=== PATIENT | female | born 1940 | race Caucasian/White ===

== ENCOUNTER 2018-08-29 05:05 | Inpatient (IN) | payer MEDICARE ==
[2018-08-23 16:18] LABS: BASOPHILS # (AUTO) 0.1 X10'3 (0-0.2); BASOPHILS % (AUTO) 0.8 % (0-1); EOSINOPHILS # (AUTO) 0.1 X10'3 (0-0.9); EOSINOPHILS % (AUTO) 1.8 % (0-6); LYMPHOCYTES # (AUTO) 2.6 X10'3 (1.1-4.8); LYMPHOCYTES % (AUTO) 32.6 % (21-51); MEAN CORPUSCULAR HEMOGLOBIN 27.9 PG (27.0-31.0); MEAN CORPUSCULAR HGB CONC 33.2 % (33.0-36.5); MEAN CORPUSCULAR VOLUME 84.2 FL (78-98); MEAN PLATELET VOLUME 8.3 FL (7.4-10.4); MONOCYTES # (AUTO) 0.6 X10'3 (0-0.9); MONOCYTES % (AUTO) 7.1 % (2-12); NEUTROPHILS # (AUTO) 4.6 X10'3 (1.8-7.7); NEUTROPHILS % (AUTO) 57.7 % (42-75); PRE OP HEMATOCRIT 40.1 % (35.0-45.0); PRE OP HEMOGLOBIN 13.3 g/dL (12.0-16.0); PRE OP PLATELET COUNT 273 X10'3 (140-440); RED BLOOD COUNT 4.76 X10'6 (4.20-5.60); RED CELL DISTRIBUTION WIDTH 13.1 % (11.5-14.5)
[2018-08-23 16:27] LABS: HEMOGLOBIN A1C 6.7 % (4.5-6.2)
[2018-08-23 16:29] LABS: ALBUMIN 3.4 G/DL (3.4-5.0); ALBUMIN/GLOBULIN RATIO 0.9 (1.1-1.5); ALKALINE PHOSPHATASE 77 IU/L (46-116); BLOOD UREA NITROGEN 19 MG/DL (7-18); BUN/CREATININE RATIO 19.6 (6.6-38.0); CHLORIDE 103 MMOL/L (99-107); CREATININE 0.97 MG/DL (0.40-0.90); PRE OP ALT 20 U/L (30-65); PRE OP ANION GAP 9 (8-16); PRE OP AST 14 U/L (10-37); PRE OP BILIRUB, TOTAL 0.2 MG/DL (0.0-1.0); PRE OP GLUCOSE 109 MG/DL (70-104); PRE OP POTASSIUM 3.5 MMOL/L (3.4-5.1); PRE OP SODIUM 142 MMOL/L (135-145); TOTAL PROTEIN 7.4 G/DL (6.4-8.2); eGFR 56 ML/MIN
[2018-08-29] VITALS (18 sets, daily range): BP systolic 101–184; BP diastolic 50–80
[~2018-08-29] VITALS: Ht 177.8 cm; Wt 115.7 kg
[~2018-08-29 05:05] MED LIST: CEPH500C5 PO; CITA-278 PO; CLOP75TA33 PO; DIT5T PO; FURO-150 PO; LOSA25TA12 PO; LOVA20TA2 PO; NOR5T PO; POTA10TA19 PO; ringers solution, lacted 1,000 ML IV SCH
[2018-08-29] MEDS ORDERED: vancomycin inj 1,500 MG in normal saline 300ml IV soln IV ONE (05:30)
[2018-08-29] MEDS ORDERED: famotidine 20mg tablet PO ONE (05:30)
[2018-08-29] MEDS ORDERED: cefazolin/dext.iso 2gm/100 ML IV ONE (05:30)
[2018-08-29] MEDS ORDERED: LIDOcaine 1% (10mg/ml) 2ml vial ONE (05:53)
[2018-08-29] MEDS ORDERED: tetracaine 1% (10mg/ml) pres. free inj. ONE (07:03)
[2018-08-29] MEDS ORDERED: tranexamic acid inj. 1,150 MG in normal saline 100ml IV soln 88.5 ML IV ONE ×4 (07:35)
[2018-08-29] MEDS ORDERED: MIDAZolam 1mg/ml 10ml vial ONE (07:44)
[2018-08-29] MEDS ORDERED: fentaNYL/PF 50MCG/1 ML 2ML syringe ONE (07:45)
[2018-08-29] MEDS ORDERED: propofol inj 20 ML IV ONE (08:03)
[2018-08-29] MEDS ORDERED: ketorolac trometh. 30mg/ml inj. ONE (08:22)
[2018-08-29] MEDS ORDERED: vancomycin 1,000mg inj ONE (08:22)
[2018-08-29] MEDS ORDERED: ROPIVAcaine 0.5% (5mg/ml) 30ml vial ONE ×2 (08:22→10:19)
[2018-08-29] MEDS ORDERED: ringers solution, lacted 1,000 ML IV SCH (09:01)
[2018-08-29] MEDS ORDERED: proCHLORperazine 10 MG/2 ml inj IV PRN (09:05)
[2018-08-29] MEDS ORDERED: ondansetron/PF 4mg/2ml inj IV PRN ×2 (09:05→10:20)
[2018-08-29] MEDS ORDERED: meperidine/PF 25mg/ml syringe IV PRN ×3 (09:05)
[2018-08-29] MEDS ORDERED: morphine 4 MG/ML inj SYRINge IV PRN ×2 (09:05)
[2018-08-29] MEDS ORDERED: BUPIVAcaine/dex-water/PF 7.5 mg/ml 2ml ampul ONE (10:18)
[2018-08-29] MEDS ORDERED: acetaminophen 325mg tablet PO PRN (10:20)
[2018-08-29] MEDS ORDERED: HYDROmorphone 1 mg/ml syringe IV PRN ×2 (10:20)
[2018-08-29] MEDS ORDERED: diphenhydrAMINE 25mg capsule PO PRN ×2 (10:20)
[2018-08-29] MEDS ORDERED: magnesium hydroxide 30ml (MOM) UD suspension PO PRN (10:20)
[2018-08-29] MEDS ORDERED: bisacodyl 10mg suppository rectal RC PRN (10:20)
[2018-08-29] MEDS ORDERED: tranexamic acid inj. 1,150 MG in normal saline 100ml IV soln 100 ML IV ONE (13:30)
[2018-08-29] MEDS: acetaminophen 325mg tablet PO SCH ×2 (13:49→20:49)
[2018-08-29] MEDS: gabapentin 300mg capsule PO SCH ×2 (13:49→20:48)
[2018-08-29] MEDS: ketorolac tromethamine 15mg/ml inj. IV SCH ×2 (13:50→20:48)
[2018-08-29] MEDS ORDERED: amLODIPine 5mg tablet PO ONE (14:55)
[2018-08-29] MEDS: potassium cl 20mEq in 1/2 NS 1,000 ML IV SCH ×2 (15:04→20:48)
[2018-08-29] MEDS: cephalexin 500mg capsule PO SCH ×2 (16:06→20:48)
[2018-08-29] MEDS: ceFAZolin 1GM/D5W- ADD-VANTAGE 50 ML IV SCH (16:06)
[2018-08-29] MEDS: oxyCODONE IR 5mg (immed. release) tablet PO PRN ×2 (16:11→20:49)
[2018-08-29] MEDS ORDERED: vancomycin/NS 1 GM ADD-VANTAGE 250 ML IV SCH (20:00)
[2018-08-29] MEDS: sennosides 8.6mg tablet PO SCH (20:48)
[2018-08-30] MEDS: ceFAZolin 1GM/D5W- ADD-VANTAGE 50 ML IV SCH (00:04)
[2018-08-30] MEDS: oxyCODONE IR 5mg (immed. release) tablet PO PRN ×4 (01:53→19:20)
[2018-08-30] MEDS: ketorolac tromethamine 15mg/ml inj. IV SCH ×2 (01:54→08:12)
[2018-08-30] MEDS: acetaminophen 325mg tablet PO SCH ×4 (01:54→19:20)
[2018-08-30 05:26] LABS: BASOPHILS % (AUTO) 0 % (0-1); EOSINOPHILS # (AUTO) 0.2 X10'3 (0-0.9); EOSINOPHILS % (AUTO) 1.5 % (0-6); LYMPHOCYTES # (AUTO) 1.7 X10'3 (1.1-4.8); LYMPHOCYTES % (AUTO) 13.8 % (21-51); MEAN CORPUSCULAR HGB CONC 33.4 % (33.0-36.5); MEAN PLATELET VOLUME 8.2 FL (7.4-10.4); MONOCYTES # (AUTO) 0.6 X10'3 (0-0.9); MONOCYTES % (AUTO) 5.3 % (2-12); NEUTROPHILS # (AUTO) 9.6 X10'3 (1.8-7.7); NEUTROPHILS % (AUTO) 79.4 % (42-75); PLATELET COUNT 210 X10'3 (140-440); RED BLOOD COUNT 3.93 X10'6 (4.20-5.60); RED CELL DISTRIBUTION WIDTH 13.6 % (11.5-14.5)
[2018-08-30 05:43] LABS: ANION GAP 8 (8-16); CHLORIDE 104 MMOL/L (99-107); POTASSIUM 4.2 MMOL/L (3.5-5.1); SODIUM 138 MMOL/L (135-145); TOTAL CARBON DIOXIDE 25.7 MMOL/L (24-32)
[2018-08-30] MEDS: potassium cl 20mEq in 1/2 NS 1,000 ML IV SCH ×3 (05:53→18:18)
[2018-08-30 06:00] VITALS: BP 140/65
[2018-08-30] MEDS: furosemide 20MG tablet PO SCH (08:00)
[2018-08-30] MEDS: clopidogrel 75mg tablet PO SCH (08:00)
[2018-08-30] MEDS: citalopram 20mg tablet PO SCH (08:12)
[2018-08-30] MEDS: potassium chloride 10mEq ER tablet PO SCH (08:12)
[2018-08-30] MEDS: losartan 25mg tablet PO SCH (08:12)
[2018-08-30] MEDS: oxybutynin 5mg tablet PO SCH (08:12)
[2018-08-30] MEDS: gabapentin 300mg capsule PO SCH ×3 (08:13→19:19)
[2018-08-30] MEDS: amLODIPine 5mg tablet PO SCH (08:13)
[2018-08-30] MEDS: aspirin 325mg tablet PO SCH (08:13)
[2018-08-30] MEDS: atorvastatin 10mg tablet PO SCH (08:13)
[2018-08-30] MEDS: cephalexin 500mg capsule PO SCH ×3 (08:15→19:19)
[2018-08-30 10:00] VITALS: BP 135/53
[2018-08-30 14:00] VITALS: BP_SYST 41
[2018-08-30 18:00] VITALS: BP 131/48
[2018-08-30] MEDS: sennosides 8.6mg tablet PO SCH (19:19)
[2018-08-30] MEDS: lactobacillus rhamnosus 10,000 MMU CELLS/CAPSULE PO SCH (19:19)
[2018-08-30] MEDS: celeCOXIB 100mg capsule PO SCH (19:20)
[2018-08-30 22:00] VITALS: BP 138/51
[2018-08-31] MEDS: acetaminophen 325mg tablet PO SCH ×2 (02:00→08:52)
[2018-08-31] MEDS: potassium cl 20mEq in 1/2 NS 1,000 ML IV SCH (02:18)
[2018-08-31] MEDS: oxyCODONE IR 5mg (immed. release) tablet PO PRN ×2 (05:17→08:57)
[2018-08-31 05:49] LABS: BASOPHILS % (AUTO) 0.2 % (0-1); EOSINOPHILS # (AUTO) 0.2 X10'3 (0-0.9); HEMATOCRIT 30.1 % (35.0-45.0); LYMPHOCYTES # (AUTO) 2.2 X10'3 (1.1-4.8); LYMPHOCYTES % (AUTO) 24.7 % (21-51); MEAN CORPUSCULAR HEMOGLOBIN 28.2 PG (27.0-31.0); MEAN CORPUSCULAR HGB CONC 33.3 % (33.0-36.5); MEAN CORPUSCULAR VOLUME 84.7 FL (78-98); MEAN PLATELET VOLUME 8.1 FL (7.4-10.4); MONOCYTES # (AUTO) 0.7 X10'3 (0-0.9); MONOCYTES % (AUTO) 7.5 % (2-12); NEUTROPHILS # (AUTO) 5.9 X10'3 (1.8-7.7); NEUTROPHILS % (AUTO) 65.6 % (42-75); PLATELET COUNT 184 X10'3 (140-440); RED BLOOD COUNT 3.55 X10'6 (4.20-5.60); RED CELL DISTRIBUTION WIDTH 13.8 % (11.5-14.5)
[2018-08-31 06:00] VITALS: BP 135/57
[2018-08-31] MEDS: potassium chloride 10mEq ER tablet PO SCH (08:00)
[2018-08-31] MEDS: furosemide 20MG tablet PO SCH (08:00)
[2018-08-31] MEDS: citalopram 20mg tablet PO SCH (08:50)
[2018-08-31] MEDS: celeCOXIB 100mg capsule PO SCH ×2 (08:50→19:49)
[2018-08-31] MEDS: lactobacillus rhamnosus 10,000 MMU CELLS/CAPSULE PO SCH ×2 (08:50→19:49)
[2018-08-31] MEDS: losartan 25mg tablet PO SCH (08:50)
[2018-08-31] MEDS: cephalexin 500mg capsule PO SCH ×3 (08:50→20:39)
[2018-08-31] MEDS: oxybutynin 5mg tablet PO SCH (08:50)
[2018-08-31] MEDS: clopidogrel 75mg tablet PO SCH (08:51)
[2018-08-31] MEDS: atorvastatin 10mg tablet PO SCH (08:51)
[2018-08-31] MEDS: gabapentin 300mg capsule PO SCH ×3 (08:51→20:39)
[2018-08-31] MEDS: amLODIPine 5mg tablet PO SCH (08:51)
[2018-08-31] MEDS: aspirin 325mg tablet PO SCH (08:52)
[2018-08-31 10:00] VITALS: BP 133/44
[2018-08-31] MEDS ORDERED: acetaminophen 325mg tablet PO PRN (10:20)
[2018-08-31 17:00] VITALS: BP 122/38
[2018-08-31] MEDS: sennosides 8.6mg tablet PO SCH (20:39)
[2018-08-31 22:04] VITALS: BP 134/44
[2018-09-01 06:00] VITALS: BP 155/47
[2018-09-01 07:56] LABS: BASOPHILS % (AUTO) 0.3 % (0-1); EOSINOPHILS # (AUTO) 0.2 X10'3 (0-0.9); EOSINOPHILS % (AUTO) 2.9 % (0-6); HEMATOCRIT 31.8 % (35.0-45.0); HEMOGLOBIN 10.7 g/dl (12.0-16.0); LYMPHOCYTES # (AUTO) 1.7 X10'3 (1.1-4.8); LYMPHOCYTES % (AUTO) 20.6 % (21-51); MEAN CORPUSCULAR HEMOGLOBIN 28.4 PG (27.0-31.0); MEAN CORPUSCULAR HGB CONC 33.6 % (33.0-36.5); MEAN CORPUSCULAR VOLUME 84.5 FL (78-98); MEAN PLATELET VOLUME 8.5 FL (7.4-10.4); MONOCYTES # (AUTO) 0.6 X10'3 (0-0.9); MONOCYTES % (AUTO) 7.5 % (2-12); NEUTROPHILS # (AUTO) 5.6 X10'3 (1.8-7.7); NEUTROPHILS % (AUTO) 68.7 % (42-75); PLATELET COUNT 178 X10'3 (140-440); RED BLOOD COUNT 3.76 X10'6 (4.20-5.60); RED CELL DISTRIBUTION WIDTH 14.1 % (11.5-14.5); WHITE BLOOD COUNT 8.2 X10'3 (4.5-11.0)
[2018-09-01] MEDS: furosemide 20MG tablet PO SCH (08:00)
[2018-09-01] MEDS: potassium chloride 10mEq ER tablet PO SCH (08:00)
[2018-09-01] MEDS: celeCOXIB 100mg capsule PO SCH (08:41)
[2018-09-01] MEDS: citalopram 20mg tablet PO SCH (08:41)
[2018-09-01] MEDS: losartan 25mg tablet PO SCH (08:41)
[2018-09-01] MEDS: atorvastatin 10mg tablet PO SCH (08:42)
[2018-09-01] MEDS: aspirin 325mg tablet PO SCH (08:42)
[2018-09-01] MEDS: lactobacillus rhamnosus 10,000 MMU CELLS/CAPSULE PO SCH (08:42)
[2018-09-01] MEDS: cephalexin 500mg capsule PO SCH (08:42)
[2018-09-01] MEDS: clopidogrel 75mg tablet PO SCH (08:42)
[2018-09-01] MEDS: gabapentin 300mg capsule PO SCH (08:42)
[2018-09-01] MEDS: amLODIPine 5mg tablet PO SCH (08:42)
[2018-09-01] MEDS: oxybutynin 5mg tablet PO SCH (08:42)
[2018-09-01] MEDS: oxyCODONE IR 5mg (immed. release) tablet PO PRN (08:42)
[2018-09-01 10:00] VITALS: BP 149/58
== END 2018-09-01 12:00 | DRG 470 ==
LOC: PAS IN 05:05 → ORTHO 4S 11:45 → EDSTATUS 14:15 → UNDODISIN 09-01 12:00
PROVIDERS: ADMIT Orthopaedic Surgery; ATTEND Orthopaedic Surgery
PROC: 8E0YXBZ Computer Assisted Procedure of Lower Extremity (ICD-10-PCS; 2018-08-29)
PROC: 8E0YXCZ Robotic Assisted Procedure of Lower Extremity (ICD-10-PCS; 2018-08-29)
PROC: 3E0T3BZ Introduction of Anesthetic Agent into Peripheral Nerves and Plexi, Percutaneous Approach (ICD-10-PCS; 2018-08-29)
PROC: 0SRD0J9 Replacement of Left Knee Joint with Synthetic Substitute, Cemented, Open Approach (ICD-10-PCS; principal; 2018-08-29 07:23)
DX: M17.12 Unilateral primary osteoarthritis, left knee (principal); D62 Acute posthemorrhagic anemia; E78.5 Hyperlipidemia, unspecified; E11.9 Type 2 diabetes mellitus without complications; I10 Essential (primary) hypertension; F41.8 Other specified anxiety disorders; N32.89 Other specified disorders of bladder; I25.10 Atherosclerotic heart disease of native coronary artery without angina pectoris; M51.16 Intervertebral disc disorders with radiculopathy, lumbar region; K21.9 Gastro-esophageal reflux disease without esophagitis; Z95.5 Presence of coronary angioplasty implant and graft; Z90.710 Acquired absence of both cervix and uterus; Z87.891 Personal history of nicotine dependence
CPT/HCPCS: 36415; 71046; 80051; 80053; 82948; 83036; 85025; 87070; 97110; 97116; 97162; 97530; A6455; A7000; C1713; C1758; C1776; G0378; J0690; J1170; J1885; J2250; J2704; J2795; J3010; J3370; J3490; J7030; J7120

== ENCOUNTER 2019-06-27 14:51 | Observation (INO) | payer MEDICARE ==
[~2019-06-27] VITALS: Ht 177.8 cm; Wt 101.0 kg
[~2019-06-27 14:51] MED LIST changes: -CITA-278 PO; +CITA20TA28 PO; -LOSA25TA12 PO; +LOSA25TA41 PO; -ringers solution, lacted 1,000 ML IV SCH
[2019-06-27 15:26] LABS: BASOPHILS # (AUTO) 0.1 X10'3 (0-0.2); BASOPHILS % (AUTO) 1.2 % (0-1); EOSINOPHILS # (AUTO) 0.2 X10'3 (0-0.9); EOSINOPHILS % (AUTO) 2.9 % (0-6); HEMATOCRIT 40.2 % (35.0-45.0); HEMOGLOBIN 13.4 g/dl (12.0-16.0); LYMPHOCYTES # (AUTO) 3.2 X10'3 (1.1-4.8); LYMPHOCYTES % (AUTO) 44.9 % (21-51); MEAN CORPUSCULAR HEMOGLOBIN 28.5 PG (27.0-31.0); MEAN CORPUSCULAR HGB CONC 33.2 g/dL (33.0-36.5); MEAN CORPUSCULAR VOLUME 85.9 FL (78-98); MEAN PLATELET VOLUME 8.2 FL (7.4-10.4); MONOCYTES # (AUTO) 0.5 X10'3 (0-0.9); NEUTROPHILS # (AUTO) 3.1 X10'3 (1.8-7.7); PLATELET COUNT 206 X10'3 (140-440); RED BLOOD COUNT 4.69 X10'6 (4.20-5.60); RED CELL DISTRIBUTION WIDTH 14.4 % (11.5-14.5)
[2019-06-27 15:37] LABS: PARTIAL THROMBOPLASTIN TIME 27 SECONDS (22-32)
[2019-06-27 15:38] LABS: ALANINE AMINOTRANSFERASE 17 U/L (12-78); ALBUMIN 3.6 G/DL (3.4-5.0); ALKALINE PHOSPHATASE 72 IU/L (46-116); ANION GAP 8 (8-16); ASPARTATE AMINO TRANSFERASE 10 U/L (10-37); BILIRUBIN,TOTAL 0.3 MG/DL (0.1-1.0); BLOOD UREA NITROGEN 18 MG/DL (7-18); BUN/CREATININE RATIO 19.8 (6.6-38.0); CHLORIDE 106 MMOL/L (99-107); CREATININE 0.91 MG/DL (0.40-0.90); GLUCOSE 95 MG/DL (70-104); POTASSIUM 3.9 MMOL/L (3.5-5.1); SODIUM 144 MMOL/L (135-145); TOTAL CARBON DIOXIDE 30.1 MMOL/L (24-32); TOTAL PROTEIN 7.1 G/DL (6.4-8.2); eGFR 60 ML/MIN
[2019-06-27] MEDS ORDERED: aspirin 81mg tab.chew PO ONE (16:15)
[2019-06-27] MEDS ORDERED: nitroGLYCERIN 0.4mg SUBLingual tab SL PRN ×3 (16:15→17:10)
[2019-06-27 16:30] LABS: D-DIMER 1.43 MG/L FEU (0-0.50)
[2019-06-27] MEDS ORDERED: magnesium hydroxide 30ml (MOM) UD suspension PO PRN (17:10)
[2019-06-27] MEDS ORDERED: HYDROcodone/acetaminophen 10/325mg tab PO PRN (17:10)
[2019-06-27] MEDS ORDERED: mag hydrox/Alum hydrox/simeth 30ml oral suspension PO PRN (17:10)
[2019-06-27] MEDS ORDERED: morphine 2 MG/ML inj. syringe IV PRN ×2 (17:10)
[2019-06-27] MEDS ORDERED: magnesium 4gm in 100ml NS 100 ML IV PRN (17:10)
[2019-06-27] MEDS ORDERED: aminophylline 250mg/10ml inj. IV PRN (17:10)
[2019-06-27] MEDS ORDERED: regadenoson 0.4mg/5ml syringe IV PRN (17:10)
[2019-06-27] MEDS ORDERED: acetaminophen 325mg tablet PO PRN ×2 (17:10)
[2019-06-27] MEDS ORDERED: magnesium Cl slow-release 64mg tablet PO PRN (17:10)
[2019-06-27] MEDS ORDERED: potassium CL 10mEq/100ml bag 100 ML IV PRN ×2 (17:10)
[2019-06-27] MEDS ORDERED: HYDROcodone/acetaminophen 5mg/325mg tablet PO PRN (17:10)
[2019-06-27] MEDS ORDERED: ondansetron/PF 4mg/2ml inj IV PRN (17:10)
[2019-06-27] MEDS ORDERED: potassium Cl 20 mEq SR tablet PO PRN ×2 (17:10)
[2019-06-27] MEDS ORDERED: metoprolol tartrate 1mg/ml inj IV PRN (17:10)
[2019-06-27] MEDS ORDERED: magnesium 2GM in 50ml NS 50 ML IV PRN (17:10)
[2019-06-27] MEDS ORDERED: iohexol 350MG/ML 100ml bottle IV ONE (17:16)
[2019-06-27] MEDS ORDERED: NITR50CA PO (17:20)
[2019-06-27] MEDS: normal saline 1000ml 1,000 ML IV SCH ×2 (18:04→20:46)
[2019-06-27] MEDS: oxybutynin 5mg tablet PO SCH (20:46)
[2019-06-27] MEDS ORDERED: temazepam 15mg capsule PO PRN (21:00)
[2019-06-27 21:59] LABS: HEMOGLOBIN A1C 5.9 % (4.5-6.2)
[2019-06-27 22:00] VITALS: BP 140/58
[2019-06-28] VITALS (10 sets, daily range): BP systolic 144–177; BP diastolic 56–87
[2019-06-28 04:20] LABS: HEMATOCRIT 40.7 % (35.0-45.0); HEMOGLOBIN 13.7 g/dl (12.0-16.0); MEAN CORPUSCULAR HEMOGLOBIN 28.7 PG (27.0-31.0); MEAN CORPUSCULAR HGB CONC 33.5 g/dL (33.0-36.5); MEAN CORPUSCULAR VOLUME 85.5 FL (78-98); MEAN PLATELET VOLUME 8.2 FL (7.4-10.4); PLATELET COUNT 178 X10'3 (140-440); RED BLOOD COUNT 4.77 X10'6 (4.20-5.60); RED CELL DISTRIBUTION WIDTH 14.1 % (11.5-14.5); WHITE BLOOD COUNT 6.2 X10'3 (4.5-11.0)
[2019-06-28 04:25] LABS: ALBUMIN 3.4 G/DL (3.4-5.0); ANION GAP 7 (8-16); CALCIUM 8.6 MG/DL (8.5-10.1); CHLORIDE 109 MMOL/L (99-107); CHOL/HDL RATIO 2.8 (0.00-4.99); CHOLESTEROL 135 MG/DL (0-200); CREATININE 0.97 MG/DL (0.40-0.90); GLUCOSE 96 MG/DL (70-104); HDL CHOLESTEROL 48 MG/DL (35-60); LDL CHOLESTEROL 68 MG/DL (50-100); MAGNESIUM 1.9 MG/DL (1.5-2.4); PHOSPHORUS 4.8 MG/DL (2.3-4.5); POTASSIUM 3.8 MMOL/L (3.5-5.1); SODIUM 144 MMOL/L (135-145); TOTAL CARBON DIOXIDE 28.4 MMOL/L (24-32); TRIGLYCERIDES 122 MG/DL (20-135); eGFR 55 ML/MIN
[2019-06-28 04:27] LABS: BLOOD UREA NITROGEN 19 MG/DL (7-18); BUN/CREATININE RATIO 19.6 (6.6-38.0)
[2019-06-28] MEDS: normal saline 1000ml 1,000 ML IV SCH (05:07)
--- NOTE | 2019-06-28 06:28 | NUR ---
Patient in room PCU 3012. I have received report from Jie RAMOS and had the opportunity to ask questions and assume patient care. Pt is in bed resting, all needs met at this time. will continue to monitor.
[2019-06-28] MEDS: oxybutynin 5mg tablet PO SCH (07:21)
[2019-06-28] MEDS ORDERED: clopidogrel 75mg tablet PO SCH (08:00)
[2019-06-28] MEDS ORDERED: citalopram 20mg tablet PO SCH (08:00)
[2019-06-28] MEDS ORDERED: atorvastatin 10mg tablet PO SCH (08:00)
[2019-06-28] MEDS ORDERED: K and/or MAG REPLACEMENT MC SCH (08:00)
[2019-06-28] MEDS ORDERED: enoxaparin 40mg/0.4ml syringe SUBCUT SCH (08:00)
[2019-06-28] MEDS ORDERED: losartan 25mg tablet PO SCH (08:00)
[2019-06-28] MEDS ORDERED: aspirin 325mg tablet PO SCH (08:30)
--- NOTE | 2019-06-28 09:18 | NUR ---
PAGER ID: [phone] MESSAGE: [id number] Elvia Davis: FYI Morning BP was 162/56 (122), received AM scheduled cozaar 25mg, Rechecked BP is now 147/57 (102). Thanks Yaneth [phone]
--- NOTE | 2019-06-28 09:22 | NUR ---
PAGER ID: [phone] MESSAGE: [id number] Elvia Davis: FYI Morning BP was 162/56 (122), received AM scheduled cozaar 25mg, Rechecked BP is now 147/57 (102). Thanks Yaneth [phone]
[2019-06-28] MEDS ORDERED: ASPI-1071 PO (14:10)
[2019-06-28] MEDS ORDERED: LOSA50TA64 PO (14:10)
--- NOTE | 2019-06-28 16:34 | NUR ---
pt is stable for discharge per md orders, discharge instructions reviewed w/ patient, all questions answered, new medication prescription called into [facility] @ [place] per pt request, tele monitor 52 removed and returned, PIV dc'ed and clean dry dressing in place, pt discharged @1630 to home via private vehicle w/ , wheeled down to lobby with hospital staff, all belongings w/ pt at time of discharge.
== END 2019-06-28 16:33 | disposition home or self-care (01) ==
LOC: ER 14:53 → PCU 3S 19:06 → CMPBEDREQ 19:09
PROVIDERS: ADMIT Family Medicine; ATTEND Family Medicine
DX: I25.119 Atherosclerotic heart disease of native coronary artery with unspecified angina pectoris (principal); E78.5 Hyperlipidemia, unspecified; N39.0 Urinary tract infection, site not specified; I16.0 Hypertensive urgency; F31.9 Bipolar disorder, unspecified; I12.9 Hypertensive chronic kidney disease with stage 1 through stage 4 chronic kidney disease, or unspecified chronic kidney disease; E11.22 Type 2 diabetes mellitus with diabetic chronic kidney disease; N18.9 Chronic kidney disease, unspecified; I51.7 Cardiomegaly; F32.9 Major depressive disorder, single episode, unspecified; I13.10 Hypertensive heart and chronic kidney disease without heart failure, with stage 1 through stage 4 chronic kidney disease, or unspecified chronic kidney disease; Z79.899 Other long term (current) drug therapy; Z87.440 Personal history of urinary (tract) infections; Z87.891 Personal history of nicotine dependence; Z90.710 Acquired absence of both cervix and uterus; Z95.5 Presence of coronary angioplasty implant and graft; Z96.652 Presence of left artificial knee joint; R00.1 Bradycardia, unspecified
CPT/HCPCS: 36415; 71045; 71275; 78452; 80048; 80053; 80061; 83036; 83735; 83880; 84100; 84443; 84484; 85025; 85027; 85379; 85610; 85730; 87081; 93005; 93017; 93306; 96372; 99284; A9500; G0378; J0280; J2785; J7030; Q9967; J1650

== ENCOUNTER 2019-11-08 05:53 | Day surgery (SDC) | payer MEDICARE ==
[2019-11-07 12:52] LABS: BASOPHILS % (AUTO) 0.5 % (0-1); EOSINOPHILS # (AUTO) 0.1 X10'3 (0-0.9); EOSINOPHILS % (AUTO) 2.2 % (0-6); HEMATOCRIT 38.9 % (35.0-45.0); HEMOGLOBIN 13.2 g/dl (12.0-16.0); LYMPHOCYTES # (AUTO) 2.5 X10'3 (1.1-4.8); LYMPHOCYTES % (AUTO) 37.6 % (21-51); MEAN CORPUSCULAR HEMOGLOBIN 28.9 PG (27.0-31.0); MEAN CORPUSCULAR HGB CONC 34.1 g/dL (33.0-36.5); MEAN CORPUSCULAR VOLUME 84.9 FL (78-98); MEAN PLATELET VOLUME 8.1 FL (7.4-10.4); MONOCYTES # (AUTO) 0.4 X10'3 (0-0.9); MONOCYTES % (AUTO) 5.7 % (2-12); NEUTROPHILS # (AUTO) 3.5 X10'3 (1.8-7.7); PLATELET COUNT 222 X10'3 (140-440); RED BLOOD COUNT 4.58 X10'6 (4.20-5.60); RED CELL DISTRIBUTION WIDTH 13.8 % (11.5-14.5); WHITE BLOOD COUNT 6.6 X10'3 (4.5-11.0)
[2019-11-07 12:55] LABS: ALBUMIN 3.4 G/DL (3.4-5.0); ANION GAP 6 (8-16); BLOOD UREA NITROGEN 13 MG/DL (7-18); BUN/CREATININE RATIO 14.1 (6.6-38.0); CALCIUM 8.6 MG/DL (8.5-10.1); CHLORIDE 107 MMOL/L (99-107); CREATININE 0.92 MG/DL (0.40-0.90); GLUCOSE 143 MG/DL (70-104); POTASSIUM 3.8 MMOL/L (3.5-5.1); SODIUM 145 MMOL/L (135-145); TOTAL CARBON DIOXIDE 32.2 MMOL/L (24-32); eGFR 59 ML/MIN
[2019-11-07 12:58] LABS: PARTIAL THROMBOPLASTIN TIME 26 SECONDS (22-32)
[~2019-11-08] VITALS: Ht 177.8 cm; Wt 102.7 kg
[2019-11-08] VITALS (10 sets, daily range): BP systolic 155–177; BP diastolic 58–70
[~2019-11-08 05:53] MED LIST changes: -CEPH500C5 PO; -FURO-150 PO; -LOSA25TA41 PO; +LOSA50TA64 PO; +NITR50CA PO; -NOR5T PO; -POTA10TA19 PO
[2019-11-08] MEDS ORDERED: normal saline 1000ml 1,000 ML IV SCH (06:15)
[2019-11-08] MEDS ORDERED: cefazolin/dext.iso 2gm/100ml 100 ML IV ONE (06:15)
[2019-11-08] MEDS ORDERED: LOSA50TA3 PO (06:58)
[2019-11-08] MEDS ORDERED: ASPI81TA52 PO (07:01)
[2019-11-08] MEDS ORDERED: NITR0.4T51 SL (07:01)
[2019-11-08] MEDS ORDERED: LIDOcaine 1% W/epiNEPHrine 1:100,000 20ml vial ONE (08:10)
[2019-11-08] MEDS ORDERED: midazolam 2 mg/2 ml injection ONE (08:10)
[2019-11-08] MEDS ORDERED: ceFAZolin 1000mg inj ONE (08:10)
[2019-11-08] MEDS ORDERED: fentaNYL/PF 50MCG/1 ML 2ML syringe ONE (08:10)
[2019-11-08] MEDS ORDERED: vancomycin/NS 1 GM ADD-VANTAGE 250 ML X 1 DOSE IV ONE (11:00)
== END 2019-11-08 14:00 | disposition home or self-care (01) ==
LOC: SSTAY O 05:53
PROVIDERS: ATTEND Internal Medicine Cardiovascular Disease
DX: I49.5 Sick sinus syndrome (principal); E11.9 Type 2 diabetes mellitus without complications; I10 Essential (primary) hypertension; E78.5 Hyperlipidemia, unspecified; I25.10 Atherosclerotic heart disease of native coronary artery without angina pectoris; Z87.891 Personal history of nicotine dependence; Z79.899 Other long term (current) drug therapy; Z79.01 Long term (current) use of anticoagulants
CPT/HCPCS: 33208; 36415; 71046; 80048; 85025; 85610; 85730; 93005; 99152; 99153; C1785; C1894; C1898; J0690; J2250; J3010; J3370; J7030; A4565; A4620; A6449

== ENCOUNTER 2021-08-20 14:13 | Emergency (ER) | payer MEDICARE ==
[~2021-08-20] VITALS: Ht 177.8 cm; Wt 110.7 kg
[~2021-08-20 14:13] MED LIST changes: +ASPI81TA52 PO; +LOSA50TA3 PO; -LOSA50TA64 PO; +NITR0.4T51 SL
--- NOTE | 2021-08-20 16:38 | NUR ---
informed the provider that pt had a fall on thinner and waiting for md ,if we can get the order for ct scan ,okay to order ct head and neck as per dr padilla.
--- NOTE | 2021-08-20 16:49 | NUR ---
to ct scan.
[2021-08-20 17:10] VITALS: BP 178/86
== END 2021-08-20 19:31 | disposition home or self-care (01) ==
LOC: ER 14:14
DX: S09.90XA Unspecified injury of head, initial encounter (principal); M54.2 Cervicalgia; S16.1XXA Strain of muscle, fascia and tendon at neck level, initial encounter; S80.02XA Contusion of left knee, initial encounter; M79.605 Pain in left leg; F17.200 Nicotine dependence, unspecified, uncomplicated; I25.10 Atherosclerotic heart disease of native coronary artery without angina pectoris; Z88.8 Allergy status to other drugs, medicaments and biological substances; Z79.82 Long term (current) use of aspirin; Z79.899 Other long term (current) drug therapy; W01.0XXA Fall on same level from slipping, tripping and stumbling without subsequent striking against object, initial encounter; Y93.89 Activity, other specified; Y92.89 Other specified places as the place of occurrence of the external cause; Y99.8 Other external cause status
CPT/HCPCS: 70450; 72125; 93005; 99285

== ENCOUNTER 2022-01-02 09:36 | Emergency (ER) | payer MEDICARE ==
[~2022-01-02] VITALS: Ht 177.8 cm; Wt 103.0 kg
[2022-01-02 09:39] VITALS: BP 167/73
[2022-01-02] MEDS ORDERED: acetaminophen 325mg tablet PO ONE (09:55)
[2022-01-02 10:20] LABS: BASOPHILS % (AUTO) 0.5 % (0-1); EOSINOPHILS # (AUTO) 0.2 X10'3 (0-0.9); EOSINOPHILS % (AUTO) 3.3 % (0-6); HEMATOCRIT 39.5 % (35.0-45.0); LYMPHOCYTES # (AUTO) 2.1 X10'3 (1.1-4.8); LYMPHOCYTES % (AUTO) 42.2 % (21-51); MEAN CORPUSCULAR HEMOGLOBIN 27.5 PG (27.0-31.0); MEAN CORPUSCULAR HGB CONC 32.9 g/dL (33.0-36.5); MEAN CORPUSCULAR VOLUME 83.5 FL (78-98); MEAN PLATELET VOLUME 7.6 FL (7.4-10.4); MONOCYTES # (AUTO) 0.4 X10'3 (0-0.9); MONOCYTES % (AUTO) 7.7 % (2-12); NEUTROPHILS # (AUTO) 2.3 X10'3 (1.8-7.7); NEUTROPHILS % (AUTO) 46.3 % (42-75); PLATELET COUNT 203 X10'3 (140-440); RED BLOOD COUNT 4.73 X10'6 (4.20-5.60); RED CELL DISTRIBUTION WIDTH 13.9 % (11.5-14.5)
[2022-01-02 10:26] LABS: CLARITY,URINE SLIGHTLY CLOUDY (Clear); COLOR,URINE YELLOW (Yellow); GLUCOSE, URINE NEGATIVE (Neg); KETONES,URINE NEGATIVE (Neg); LEUKOCYTE ESTERASE ,URINE NEGATIVE (Neg); NITRITES, URINE NEGATIVE (Neg); OCCULT BLOOD,URINE SMALL (Neg); PROTEIN,URINE NEGATIVE (Neg); UROBILINOGEN,URINE 0.2 E.U/dL (0.2-1.0)
[2022-01-02 10:28] LABS: ALANINE AMINOTRANSFERASE 18 U/L (12-78); ALBUMIN 3.4 G/DL (3.4-5.0); ALKALINE PHOSPHATASE 72 IU/L (46-116); ANION GAP 10 (8-16); ASPARTATE AMINO TRANSFERASE 12 U/L (10-37); BILIRUBIN,TOTAL 0.4 MG/DL (0.1-1.0); BLOOD UREA NITROGEN 21 MG/DL (7-18); BUN/CREATININE RATIO 23.6 (6.6-38.0); CALCIUM 8.9 MG/DL (8.5-10.1); CHLORIDE 105 MMOL/L (99-107); CREATININE 0.89 MG/DL (0.40-0.90); GLUCOSE 136 MG/DL (70-104); POTASSIUM 4.3 MMOL/L (3.5-5.1); SODIUM 142 MMOL/L (135-145); TOTAL CARBON DIOXIDE 26.6 MMOL/L (24-32); TOTAL PROTEIN 6.9 G/DL (6.4-8.2); eGFR 61 ML/MIN
[2022-01-02 10:29] LABS: UA COLLECTION TYPE NON-SPECIFIED
[2022-01-02] MEDS ORDERED: iohexol 350MG/ML 100ml bottle IV ONE (10:29)
--- NOTE | 2022-01-02 10:35 | NUR ---
Pt taken to CT
[2022-01-02 10:38] LABS: MUCUS STRANDS FEW /LPF (Neg); SQUAMOUS EPITHELIAL CELL,UR MANY /LPF (FEW)
[2022-01-02 10:39] LABS: BACTERIA,URINE FEW /HPF (Neg); WBC,URINE 0-4 /HPF (0-4)
== END 2022-01-02 12:41 | disposition home or self-care (01) ==
LOC: ER 09:36
DX: G89.29 Other chronic pain (principal); M54.6 Pain in thoracic spine; E04.1 Nontoxic single thyroid nodule; R53.1 Weakness; R26.2 Difficulty in walking, not elsewhere classified; R31.9 Hematuria, unspecified; I25.10 Atherosclerotic heart disease of native coronary artery without angina pectoris; I25.2 Old myocardial infarction; Z87.440 Personal history of urinary (tract) infections; Z87.442 Personal history of urinary calculi; Z95.5 Presence of coronary angioplasty implant and graft; Z95.0 Presence of cardiac pacemaker; Z88.8 Allergy status to other drugs, medicaments and biological substances; Z88.1 Allergy status to other antibiotic agents; Z79.82 Long term (current) use of aspirin; Z79.899 Other long term (current) drug therapy
CPT/HCPCS: 36415; 71275; 74175; 80053; 81001; 83605; 84145; 84484; 85025; 85610; 99285; Q9967

== ENCOUNTER 2024-01-03 18:54 | Emergency (ER) | payer MEDICARE ==
[~2024-01-03] VITALS: Ht 167.6 cm; Wt 102.7 kg
[~2024-01-03 18:54] MED LIST changes: +APIX5TAB3 PO; +ATOR-2 PO; +CARV3.1244 PO; -DIT5T PO; +LOSA-416 PO; -LOSA50TA3 PO; -LOVA20TA2 PO; +OXYB15TA19 PO; +PANT40TA54 PO
[2024-01-03 19:12] VITALS: TEMP 98
[2024-01-03 20:23] LABS: BASOPHILS % (AUTO) 0.7 % (0-1); EOSINOPHILS # (AUTO) 0.2 X10'3 (0-0.9); EOSINOPHILS % (AUTO) 2.1 % (0-6); LYMPHOCYTES # (AUTO) 2.2 X10'3 (1.1-4.8); LYMPHOCYTES % (AUTO) 29.8 % (21-51); MEAN CORPUSCULAR HEMOGLOBIN 28.6 PG (27.0-31.0); MEAN CORPUSCULAR HGB CONC 33.3 g/dL (33.0-36.5); MONOCYTES # (AUTO) 0.6 X10'3 (0-0.9); MONOCYTES % (AUTO) 8.2 % (2-12); NEUTROPHILS # (AUTO) 4.4 X10'3 (1.8-7.7); NEUTROPHILS % (AUTO) 59.2 % (42-75); PLATELET COUNT 229 X10'3 (140-440); RED BLOOD COUNT 4.54 X10'6 (4.20-5.60); RED CELL DISTRIBUTION WIDTH 13.5 % (11.5-14.5); WHITE BLOOD COUNT 7.5 X10'3 (4.5-11.0)
[2024-01-03 20:28] LABS: INR 1.1 INR; PROTHROMBIN TIME 11.3 SECONDS (9.0-12.0)
[2024-01-03 20:31] LABS: ALANINE AMINOTRANSFERASE 25 U/L (12-78); ALBUMIN 3.5 G/DL (3.4-5.0); ALBUMIN/GLOBULIN RATIO 0.9 (1.1-1.5); ALKALINE PHOSPHATASE 88 IU/L (46-116); ANION GAP 10 (8-16); ASPARTATE AMINO TRANSFERASE 16 U/L (10-37); BILIRUBIN,TOTAL 0.5 MG/DL (0.1-1.0); BLOOD UREA NITROGEN 15 MG/DL (7-18); BUN/CREATININE RATIO 14.6 (10.0-20.0); CHLORIDE 105 MMOL/L (99-107); CREATININE 1.03 MG/DL (0.40-0.90); GLUCOSE 144 MG/DL (70-104); POTASSIUM 3.8 MMOL/L (3.5-5.1); SODIUM 144 MMOL/L (135-145); TOTAL CARBON DIOXIDE 28.7 MMOL/L (24-32); TOTAL PROTEIN 7.3 G/DL (6.4-8.2); eCRCL 39 ML/MIN; eGFR 51 ML/MIN
[2024-01-03 20:39] LABS: PRO BRAIN NATRIURETIC PEPTIDE 509 PG/ML (0-450)
[2024-01-03 21:09] VITALS: BP 167/72; PULSE 60; RESP 13; O2SAT 99
== END 2024-01-03 20:50 | disposition home or self-care (01) ==
LOC: ER 18:54
DX: S00.83XA Contusion of other part of head, initial encounter (principal); E11.9 Type 2 diabetes mellitus without complications; Z88.8 Allergy status to other drugs, medicaments and biological substances; Z88.5 Allergy status to narcotic agent; Z91.041 Radiographic dye allergy status; Z79.899 Other long term (current) drug therapy; Z79.82 Long term (current) use of aspirin; W19.XXXA Unspecified fall, initial encounter; Y93.89 Activity, other specified; Y92.89 Other specified places as the place of occurrence of the external cause; Y99.8 Other external cause status
CPT/HCPCS: 36415; 70450; 71045; 71250; 72125; 74176; 80053; 83880; 84484; 85025; 85610; 93005; 99285

== ENCOUNTER 2024-10-27 22:31 | Emergency (ER) | payer MEDICARE ==
[~2024-10-27] VITALS: Ht 177.8 cm; Wt 100.0 kg
[2024-10-27 23:47] LABS: BASOPHILS % (AUTO) 0.5 % (0-1); EOSINOPHILS # (AUTO) 0.1 X10'3 (0-0.9); EOSINOPHILS % (AUTO) 0.8 % (0-6); HEMATOCRIT 42.6 % (35.0-45.0); HEMOGLOBIN 14.1 g/dl (12.0-16.0); LYMPHOCYTES # (AUTO) 2.1 X10'3 (1.1-4.8); MEAN CORPUSCULAR HEMOGLOBIN 28.6 PG (27.0-31.0); MEAN CORPUSCULAR HGB CONC 33.1 g/dL (33.0-36.5); MEAN CORPUSCULAR VOLUME 86.5 FL (78-98); MEAN PLATELET VOLUME 8.2 FL (7.4-10.4); MONOCYTES # (AUTO) 0.6 X10'3 (0-0.9); MONOCYTES % (AUTO) 9.2 % (2-12); NEUTROPHILS # (AUTO) 3.6 X10'3 (1.8-7.7); NEUTROPHILS % (AUTO) 56.5 % (42-75); PLATELET COUNT 203 X10'3 (140-440); RED BLOOD COUNT 4.93 X10'6 (4.20-5.60); RED CELL DISTRIBUTION WIDTH 14.5 % (11.5-14.5); WHITE BLOOD COUNT 6.4 X10'3 (4.5-11.0)
[2024-10-27] MEDS: morphine 4 MG/ML inj SYRINge IV ONE (23:52)
[2024-10-27 23:58] LABS: APTT 24 SECONDS (22-32); INR 1.1 INR; PROTHROMBIN TIME 11.1 SECONDS (9.0-12.0)
[2024-10-28] LABS: ALANINE AMINOTRANSFERASE 15 U/L (12-78); ALBUMIN 3.3 G/DL (3.4-5.0); ALKALINE PHOSPHATASE 82 IU/L (46-116); ANION GAP 11 (8-16); ASPARTATE AMINO TRANSFERASE 16 U/L (10-37); BILIRUBIN,TOTAL 0.3 MG/DL (0.1-1.0); BLOOD UREA NITROGEN 25 MG/DL (7-18); BUN/CREATININE RATIO 23.4 (10.0-20.0); CALCIUM 8.6 MG/DL (8.5-10.1); CHLORIDE 106 MMOL/L (99-107); CREATININE 1.07 MG/DL (0.40-0.90); GLUCOSE 148 MG/DL (70-104); SODIUM 143 MMOL/L (135-145); TOTAL CARBON DIOXIDE 25.8 MMOL/L (24-32); TOTAL PROTEIN 6.7 G/DL (6.4-8.2); eCRCL 42 ML/MIN; eGFR 49 ML/MIN
[2024-10-28] MEDS ORDERED: iohexol 350MG/ML 100ml bottle IV ONE (00:05)
[2024-10-28] MEDS ORDERED: iohexol 350 MG/ML 50ML vial IV ONE (00:05)
[2024-10-28] MEDS ORDERED: HYDR-3965 PO ×2 (04:08→11:58)
[2024-10-28] MEDS: HYDROcodone/acetaminophen 5mg/325mg tablet PO ONE (04:18)
[2024-10-28 04:20] VITALS: BP 128/90; PULSE 85; RESP 18; TEMP 98.6; O2SAT 98
== END 2024-10-28 04:22 | disposition home or self-care (01) ==
LOC: ER 22:32
DX: S76.812A Strain of other specified muscles, fascia and tendons at thigh level, left thigh, initial encounter (principal); I25.10 Atherosclerotic heart disease of native coronary artery without angina pectoris; E11.9 Type 2 diabetes mellitus without complications; I25.2 Old myocardial infarction; Z95.0 Presence of cardiac pacemaker; E07.9 Disorder of thyroid, unspecified; Z88.5 Allergy status to narcotic agent; Z88.1 Allergy status to other antibiotic agents; Z79.899 Other long term (current) drug therapy; Z79.82 Long term (current) use of aspirin; X58.XXXA Exposure to other specified factors, initial encounter; Y93.89 Activity, other specified; Y92.89 Other specified places as the place of occurrence of the external cause; Y99.8 Other external cause status
CPT/HCPCS: 36415; 75635; 80053; 85025; 85610; 85730; 96374; 99285; J2270; Q9967

== ENCOUNTER 2024-12-14 15:02 | Emergency (ER) | payer MEDICARE ==
[~2024-12-14] VITALS: Ht 177.8 cm; Wt 103.0 kg
[~2024-12-14 15:02] MED LIST changes: +HYDR-3965 PO
[2024-12-14 15:09] VITALS: TEMP 99.1
[2024-12-14] MEDS: aspirin 81mg tab.chew PO ONE (15:36)
[2024-12-14 15:56] LABS: BASOPHILS % (AUTO) 0.5 % (0-1); EOSINOPHILS # (AUTO) 0.1 X10'3 (0-0.9); HEMATOCRIT 39.3 % (35.0-45.0); HEMOGLOBIN 13.2 g/dl (12.0-16.0); LYMPHOCYTES # (AUTO) 1.6 X10'3 (1.1-4.8); LYMPHOCYTES % (AUTO) 30.2 % (21-51); MEAN CORPUSCULAR HEMOGLOBIN 29.1 PG (27.0-31.0); MEAN CORPUSCULAR HGB CONC 33.6 g/dL (33.0-36.5); MEAN CORPUSCULAR VOLUME 86.6 FL (78-98); MEAN PLATELET VOLUME 8.1 FL (7.4-10.4); MONOCYTES # (AUTO) 0.4 X10'3 (0-0.9); MONOCYTES % (AUTO) 7.3 % (2-12); NEUTROPHILS # (AUTO) 3.3 X10'3 (1.8-7.7); PLATELET COUNT 167 X10'3 (140-440); RED BLOOD COUNT 4.53 X10'6 (4.20-5.60); RED CELL DISTRIBUTION WIDTH 14.3 % (11.5-14.5); WHITE BLOOD COUNT 5.4 X10'3 (4.5-11.0)
[2024-12-14 16:23] LABS: ALBUMIN 3.1 G/DL (3.4-5.0); ANION GAP 6 (8-16); BLOOD UREA NITROGEN 22 MG/DL (7-18); BUN/CREATININE RATIO 22.4 (10.0-20.0); CALCIUM 8.3 MG/DL (8.5-10.1); CHLORIDE 107 MMOL/L (99-107); CREATININE 0.98 MG/DL (0.40-0.90); GLUCOSE 140 MG/DL (70-104); MAGNESIUM 1.9 MG/DL (1.5-2.4); POTASSIUM 4.3 MMOL/L (3.5-5.1); PRO BRAIN NATRIURETIC PEPTIDE 2334 PG/ML (0-450); SODIUM 141 MMOL/L (135-145); TOTAL CARBON DIOXIDE 27.6 MMOL/L (24-32); eCRCL 46 ML/MIN; eGFR 54 ML/MIN
[2024-12-14 17:25] VITALS: BP 131/77; PULSE 77; RESP 18; O2SAT 98
[2024-12-22] MEDS ORDERED: CLOP-32 PO (22:27)
[2024-12-22] MEDS ORDERED: ESCI20TA PO (22:31)
== END 2024-12-14 17:28 | disposition home or self-care (01) ==
LOC: ER 15:03
DX: T17.928A Food in respiratory tract, part unspecified causing other injury, initial encounter (principal); R07.89 Other chest pain; E11.9 Type 2 diabetes mellitus without complications; I25.10 Atherosclerotic heart disease of native coronary artery without angina pectoris; Z85.3 Personal history of malignant neoplasm of breast; Z88.5 Allergy status to narcotic agent; Z88.1 Allergy status to other antibiotic agents; Z95.0 Presence of cardiac pacemaker; Z79.82 Long term (current) use of aspirin; W44.F3XA Food entering into or through a natural orifice, initial encounter; Y93.89 Activity, other specified; Y92.89 Other specified places as the place of occurrence of the external cause; Y99.8 Other external cause status
CPT/HCPCS: 36415; 71045; 80048; 83735; 83880; 84484; 85025; 93005; 99285

== ENCOUNTER 2025-06-29 20:44 | Emergency (ER) | payer MEDICARE ==
[~2025-06-29] VITALS: Ht 177.8 cm; Wt 104.2 kg
[~2025-06-29 20:44] MED LIST changes: +ALBU90AE INH; -ASPI81TA52 PO; -ATOR-2 PO; -CARV3.1244 PO; +CARV6.253 PO; +CEFD300C3 PO; +CITA-178 PO; -CITA20TA28 PO; -CLOP75TA33 PO; +CLOP75TA34 PO; +ESCI20TA PO; +FURO-150 PO; -HYDR-3965 PO; -LOSA-416 PO; -NITR0.4T51 SL; +POTA-192 PO
--- NOTE | 2025-06-29 21:18 | ELECTROCARDIOGRAPH REPORT ---
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 Hilton Crabtree Measurements Intervals [place] Rate: 90 P: 0 IA: 120 QRS: -47 QRSD: 104 T: -80 QT: 377 QTc: 462 Interpretive Statements A-V dual-paced complexes w/ some inhibition No further analysis attempted due to paced rhythm Baseline wander in lead(s) V1,V2 Electronically Signed On 07-03-2025 19:21:[address] Hilton Crabtree Please click the below link to view image of tracing.
--- NOTE | 2025-06-29 21:22 | Physician Documentation ---
History of Present Illness ~ Chief Complaint: Shortness of Breath Stated Complaint: COVID SYMPTOMS Time Seen by MD: 21:00 HPI They appears to be some dissonance in history that was provided by EMS and history the the patient provides me. Per EMS report, the patient has been having flu-like symptoms since June 19, 2010 days ago, was evaluated Orin Joseph on June 26, three days ago, and diagnosed with COVID-19 disease. Evidently the facility sent her here because the patient has been experiencing worsening shortness of breath and had cough with green productive sputum. At the time of my examination the patient states that she is feeling generally weak, poorly, experiences malaise, but denies any shortness a breath, denies productive cough. Denies any fever or chills. As a matter of fact the only thing that she complains about his left lower quadrant abdominal pain that feels like I have to go poop. The particular palliating or aggravating factors for abdominal pain. She denies any nausea or vomiting. She had headache yesterday, but none today. There was no concern for tobacco, alcohol or illicit substances use. Medication Reconciliation Allergies: Coded Allergies: metformin (Verified Allergy, Unknown, UPSET STOMACH, DIARRHEA, 12/22/24) tramadol (Verified Allergy, Unknown, 12/22/24) erythromycin base (Verified Adverse Reaction, Mild, 12/22/24) Scheduled Apixaban (Eliquis), 5 MG PO BID Carvedilol (Carvedilol), 6.25 MG PO BID Cefdinir (Cefdinir), 1 CAP PO Q12H Citalopram Hydrobromide* (Celexa*), 20 MG PO DAILY, (Reported) Clopidogrel Bisulfate (Clopidogrel), 75 MG PO DAILY Escitalopram Oxalate (Lexapro), 1 TAB PO DAILY, (Reported) Furosemide* (Lasix*), 1 TAB PO BID Nitrofurantoin Macrocrystal (Nitrofurantoin), 1 CAP PO DAILY, (Reported) Oxybutynin Chloride (Oxybutynin Chloride ER), 1 TAB PO DAILY, (Reported) Pantoprazole Sodium (Pantoprazole Sodium), 40 MG PO BKF Potassium Chloride (Klor-Con), 1 TAB PO DAILY Scheduled PRN Albuterol Sulfate (Proair Respiclick), 2 PUFFS INH Q4HPRN PRN for shortness of breath Past Medical History Past Medical History: Arrhythmia, Coronary Artery Disease, Myocardial Infarction, Diabetes, Thyroid (unspecified) Past Surgical History: angioplasty, pacemaker Patient History: Patient reports no known family medical history. Alcohol Use: None Drug Use: none Lives with: Spouse Lives In: Home Occupation: retired Review of Systems ROS 10 point review of systems was performed and unless noted above in HPI is neg ative for acute process/complaint. Physical Exam Vital Signs: Temperature: 101.1, Source: Oral, Heart Rate: 94, Respiratory Rate: 15, BP: 178/88, Pulse Oximetry: 97, Weight: 104.200 Physical Exam GENERAL: Awake, alert, oriented, GCS 15, no apparent distress, non-toxic appearing, answers questions, follows commands appropriately. Examined in bed 1. HEENT: Atraumatic, normocephalic, pupils equal, extraocular muscles intact, sclerae anicteric, mucus membranes moist, oropharynx is clear, no stridor. NECK: supple, full active range of motion, trachea midline, no thyromegaly, no lymphadenopathy, no JVD. CARDIOVASCULAR: regular rate/rhythm, no murmurs/gallops/rubs, Pulses are 2+ in all extremities and symmetric. Capillary refill less than 2 seconds. PULMONARY: Nonlabored, good air movement ,no respiratory distress, speaking in full sentences, coarse breath sounds bilaterally, bilateral wheezing, no ronchi, no rales, no accessory muscle use. GASTROINTESTINAL: Soft, left lower quadrant abdominal tenderness to palpation reproducing chief complaint, non-distended, normal active bowel sounds, no organomegaly, no pulsatile masses, no CVA tenderness. NEUROLOGIC: Lucid with normal mental status. Normal facial symmetry. Moves all extremities symmetrically and with purpose. No truncal ataxia. Speech is fluid without evidence of dysarthria or aphasia, no focal deficits appreciated. MUSCULOSKELETAL: There is full range of motion of all extremities. There is no joint pain or joint swelling or joint erythema. There is no muscle pain or tenderness or swelling. EXTREMITIES: warm, well-perfused, no cyanosis, no clubbing, no edema, no acute deformities. Skin: Hot to touch, dry, no rashes or lesions, no jaundice, no petechiae orpurpura. No ecchymosis. PSYCHIATRIC: Normal affect, normal insight, normal concentration. Focused exam: No guarding or rebound Progress Results/Orders Results/Orders Orders - FRANCE LO DO Culture Blood (06/29/25 20:58) Saline Lock (06/29/25 20:58) Oxygen (06/29/25 20:58) Chest,Single View (06/29/25 21:22) Ct Abdomen Pelvis (06/29/25 21:22) Ipratropium/Albuterol Nebule (Ipratrop/A (06/29/25 21:35) * Rt Notification Q1H (06/29/25 21:35) Completed Orders - FRANCE LO DO Cbc/Diff (06/29/25 20:58) BMP (06/29/25 20:58) PBNP (06/29/25 20:58) Lacticsepsis (06/29/25 20:58) Stat Ekg (06/29/25 ) ESR (06/29/25 21:22) Chest,Single View (06/29/25 21:22) Ct Abdomen Pelvis (06/29/25 21:22) Hs Troponin I W Calculations (06/29/25 21:22) Hs Troponin I W Calculations (06/29/25 23:22) Methylprednisolone Sod Succ (Solumedrol (06/29/25 21:35) C-Reactive Protein (06/29/25 21:15) Ceftriaxone/K7e-Owruoptd 1gm (Rocephin 1 (06/29/25 21:45) Azithromycin/Ns 500mg/250ml (Zithromax/N (06/29/25 21:45) Normal Saline 1000ml (0.9% Sodium Chlori (06/29/25 21:45) Iohexol 300mg/Ml 100ml Inj. (Omnipaque-3 (06/29/25 22:35) Medications Received in ER Medications (Trade) Dose Ordered Sig/Tati Route PRN Reason Start Time Stop Time Status Last Admin Dose Admin (ipratrop/ albuterol 0.5-3(2.5) MG/3ml nebule) 3 ml ONCE PRN NEB SOB or wheezing 06/29/25 21:35 06/29/25 22:32 3 ML (SoluMEDROL 125mg inj) 125 mg ONCE ONCE IV 06/29/25 21:35 06/29/25 21:36 DC 06/29/25 22:06 125 MG Ceftriaxone Sodium 50 ml @ 100 mls/hr ONCE ONCE IV 06/29/25 21:45 06/29/25 22:14 DC 06/29/25 22:07 100 MLS/HR Azithromycin 250 ml @ 250 mls/hr ONCE ONCE IV 06/29/25 21:45 06/29/25 22:44 DC 06/29/25 23:08 250 MLS/HR Sodium Chloride 1,000 ml @ 1,000 mls/hr ONCE ONCE IV 06/29/25 21:45 06/29/25 22:44 DC 06/29/25 22:07 1,000 MLS/HR Vital Signs 06/29/25 06/29/25 06/29/25 06/29/25 20:50 20:57 22:08 22:08 Temp 101.1 101.1 Pulse 91 94 82 98 Resp 15 B/P (MAP) 178/88 178/88 (118) 141/74 (96) Pulse Ox 100 97 97 06/29/25 06/29/25 06/29/25 06/30/25 22:25 22:35 23:08 00:31 Temp 101.1 101.1 Pulse 80 85 96 96 Resp 16 16 B/P (MAP) 139/70 (93) 122/61 (81) Pulse Ox 96 97 97 O2 Delivery Room Air* Room Air* O2 Flow Rate 0 0 FiO2 06/30/25 01:43 Temp 98.6 Pulse 96 B/P (MAP) 128/68 (88) Pulse Ox 98 Laboratory Tests Test 06/29/25 21:15 06/29/25 23:28 White Blood Count 10.0 Red Blood Count 5.08 Hemoglobin 14.7 Hematocrit 44.5 Mean Corpuscular Volume 87.7 Mean Corpuscular Hemoglobin 29.0 Mean Corpuscular Hemoglobin Concent 33.1 Red Cell Distribution Width 14.2 Platelet Count 167 Mean Platelet Volume 8.2 Neutrophils (%) (Auto) 77.3 H Lymphocytes (%) (Auto) 13.9 L Monocytes (%) (Auto) 7.4 Eosinophils (%) (Auto) 1.2 Basophils (%) (Auto) 0.2 Neutrophils # (Auto) 7.7 Lymphocytes # (Auto) 1.4 Monocytes # (Auto) 0.7 Eosinophils # (Auto) 0.1 Basophils # (Auto) 0.0 CBC Comment Erythrocyte Sedimentation Rate 13 Sodium Level 138 Potassium Level 3.8 Chloride Level 104 Carbon Dioxide Level 27.9 Anion Gap 6 L Blood Urea Nitrogen 17 Creatinine 1.04 H Estimated GFR/1.73 m2 50 BUN/Creatinine Ratio 16.3 Glucose Level 198 H Lactic Acid Level 1.5 Calcium Level 8.2 L Troponin I High Sensitivity 29 37 C-Reactive Protein 1.50 H Pro-B-Type Natriuretic Peptide 2616 H Albumin 3.0 L Chemistry Comments Troponin I High Sens Percent Delta 27 Troponin I Hi Sens Absolute Change 8 Microbiology Date/Time Source Procedure Growth Status 06/29/25 21:17 Blood Hand Left Blood Culture - Preliminary NEGATIVE (LESS THAN 24 HOURS) Resulted EKG/XRAY/CT/US/VASC/MRI EKG : Additional Comment EKG was obtained and interpreted by myself showing atrially sensed, ventricularly paced rhythm with the occasional [place] beats, rate of 90, normal CA interval, narrow QRS for [place] beats, wide QRS for paced beats, normal QTC, left axis deviation, no STEMI. What appears to be electrical alternans is likely related due to intermittent pacing. Medical Decision Making Findings Facility Status: ED Holds, RME process The plan was discussed with the patient, who demonstrates clear understanding of the plan and is in agreement with the plan unless otherwise noted in the chart. All questions have been answered, all concerns were addressed unless otherwise documented. I was available throughout their ED stay for frequent reassessment and questions. Differential Diagnoses (considered and possible or likely): [Ongoing COVID like symptoms, superimposed bacterial pneumonia, COPD, asthma, CHF, ACS, less likely PE. With a respect to left lower quadrant abdominal pain, Differential diagnosis considered includes acute appendicitis, acute cholecystitis, pancreatitis, gastritis, PUD, diverticulitis, mesenteric ischemia, abdominal aortic aneurysm, bowel obstruction, enteritis, colitis, fecal impaction, volvulus, IBS, inflammatory bowel disease, specific food intolerance, peritonitis, perforated viscous, malignancy, UTI, abscess, and abdominal pain NOS. Pelvic source of pain was also considered including endometritis, dysmenorrhea, ovarian cyst, ovarian torsion, PID, TOA, cervicitis, vaginitis, or uterine fibroid. History, physical exam, and workup exclude many of the more serious causes listed above. ] ??Differential Diagnoses (considered and unlikely, not requiring evaluation currently): [See above] MDM Data Please see HPI for the following: Independent Historians and external Records Review. Historian: [Patient] Independent Historians: ?[Record review, EMS run sheet] Medication Management: [Reviewed medication list] Social History and determinants: [Reviewed] Please see the body of the note for the following: Any independent interpretations of ECG, imaging studies. All vitals signs/haemodynamics, ordered tests were independently reviewed and interpreted by myself. Nursing triage complaint and vitals reviewed, additional nursing notes were reviewed as available and I agree unless otherwise noted or documented in contradiction in the chart Vital Signs: Independently reviewed Labs: Independently interpreted Imaging: Independently interpreted Old Medical Records: Independently reviewed, see HPI for relevant summary and information Pulse Oximetry: [97%] interpreted as [normal on room air] by me [Telecasting Technician: Tachycardic Rate, Regular rhythm, no ectopy, sinus tachycardia. reviewed and interpreted by me] Additionally notably showing: [Febrile and tachycardic on presentation.] Tests considered but not ordered include: [Hemodynamics reviewed. The patient is a originally tachycardic, febrile, improved, no evidence of hypotension, no evidence of respiratory distress. She is not hypoxic. Laboratory studies showed no leukocytosis, no significant neutrophilic predominance. Chemistry obtained showing normal renal function, elevated glucose consistent with diabetes. BNP slightly elevated at 2600. Troponin is negative twice. Chest x-ray was obtained showing no acute cardiopulmonary abnormality. Considering that the patient complain of left lower quadrant abdominal pain to me, advanced imaging of the belly was obtained. On the examination of the CT, the lungs did not demonstrate any acute findings. She has diverticulosis without diverticulitis.] Social Determinants of Health Impact: Patient was evaluated in [facility], or [facility] [place] to healthcare due to below par ratio of patient to medical providers. [] Comorbid Conditions Impacting Present Evaluation and Care/Treatment: [known recent diagnosis of COVID] Management Discussions with other Healthcare Providers: [None] Treatment and Disposition Medication Management (Given or considered): []. See EMR for details Consideration for Hospitalization/Escalation/Deescalation of Care: Admission for observation has been considered, [however the patient is able to tolerate p.o., their symptoms are controlled, they are able to rely on oral medications, and their chief complaint/diagnosis can be managed on outpatient basis.] ?ED Course:?[Date: Jun 29, 2025 Time: 21:40 the patient is febrile, tachycardic, has a rhonchi on auscultation. She meets sepsis criteria. She will be provided with a empiric antibiotics. She is not a good candidate for 30 cc/kilos at this time as there was no evidence of severe sepsis, septic shock and it is contraindicated given her history of congestive heart failure. There has been no clinical deterioration. The patient isn't hypoxic. She has a known diagnosis of COVID. She was febrile, likely related to her COVID. ] ?Shared decision making:?[Patient is hemodynamically stable for discharge home with follow with their primary care provider. [ ] Specific and cautious return precautions provided and discussed with full understanding. Any incidental findings were also discussed and follow up recommendations given. [] All questions answered. Patient/family were able to verbalize back return precautions. Patient/family agree to plan. Copies of imaging and laboratory studies were provided.] Code status:?FULL Please see the full Electronic Medical Record for full details of nursing documentation, medications list, other records of complete past medical history and conditions, vital signs, laboratory studies, and any radiologic study interpretations by radiologists. Portions of this note were completed using U[employer] dictation software and as a result there may exist minor errors in spelling. I have reviewed elements of past family and social history and agree as included in note. Departure Disposition: HOME / SELF CARE / HOMELESS Impression: Primary Impression: COVID Additional Impressions: Productive cough Acute febrile illness Left lower quadrant abdominal pain Elevated brain natriuretic peptide (BNP) level Community acquired pneumonia COPD exacerbation Condition: Stable Discharge Instructions: Upper Respiratory Infection, Adult Referrals: NO PRIMARY CARE PROVIDER (PCP) Prescriptions Albuterol Sulfate (Ventolin Hfa) 90 Mcg Hfa.aer.ad 2 PUFFS INH Q4HPRN PRN for wheezing for 30 Days, #18 GM 0 Refills Prov: FRANCE LO DO 06/30/25 Methylprednisolone (Medrol Dosepak) 4 Mg Tab.ds.pk 0 PO UD, #21 TAB 0 Refills take 6 Pills Day 1, 5 Pills Day 2, 4 Pills Day 3, 3 Pills Day 4, 2 Pills Day 5 and 1 pill Day 6 Prov: FRANCE LO DO 06/30/25 Amox Tr/Potassium Clavulanate (Augmentin 875-125 Tablet) 1 Each Tablet 1 TAB PO Q12H for 10 Days, #20 TAB Prov: FRANCE LO DO 06/30/25 Education Educated: Patient Educated regarding: diagnosis, treatment, prognosis, need for follow up Signature Scribe Signature: No scribe Attestation: Date: Jun 29, 2025 Time: 21:22 This note accurately reflects clinical decisions, work performed by myself, DO WALLY Paez NICHOLAS M DO Jun 29, 2025 21:22
[2025-06-29 21:27] LABS: MEAN PLATELET VOLUME 8.2 FL (7.4-10.4); RED CELL DISTRIBUTION WIDTH 14.2 % (11.5-14.5)
--- NOTE | 2025-06-29 21:52 | RADIOLOGY REPORT ---
CHEST RADIOGRAPH Indication: Cough, shortness a breath Technique: 1 view Comparison: DI CHEST,SINGLE VIEW on DOS: 12/14/24, DI CHEST,SINGLE VIEW on DOS: 01/03/24, DI CHEST,SINGLE VIEW on DOS: 09/27/23, CHEST,SINGLE VIEW on DOS: 02/14/22 FINDINGS: Lines and Tubes: Unchanged left implanted cardiac device. Lungs/Pleura: No focal consolidation. Trace right pleural effusion. No pneumothorax. Cardiomediastinum: Mild cardiomegaly. Aortic atherosclerosis. Other: No acute osseous abnormality. IMPRESSION: 1. No acute cardiopulmonary abnormality.
[2025-06-29 21:53] LABS: CREATININE 1.04 MG/DL (0.40-0.90); PRO BRAIN NATRIURETIC PEPTIDE 2616 PG/ML (0-450); TOTAL CARBON DIOXIDE 27.9 MMOL/L (24-32); eCRCL 43 ML/MIN; eGFR 50 ML/MIN
[2025-06-29] MEDS: normal saline 1000ml 1,000 ML IV ONE (22:07)
[2025-06-29] MEDS: CefTRIAXone/D5W-Rocephin 1gm 50 ML IV ONE (22:07)
[2025-06-29 22:25] VITALS: PULSE 80; RESP 16; O2SAT 96
[2025-06-29] MEDS: ipratropium/albuterol 3ml nebule NEB PRN (22:32)
[2025-06-29 22:35] VITALS: PULSE 85; RESP 16
[2025-06-29] MEDS ORDERED: iohexol 300mg/ml 100ml inj. ONE (22:35)
[2025-06-29] MEDS: azithromycin/NS 500mg/250ml 250 ML IV ONE (23:08)
--- NOTE | 2025-06-29 23:39 | RADIOLOGY REPORT ---
Exam: CT CT ABDOMEN PELVIS W/ IV CONTRAST History: Left lower quadrant abdominal pain COMPARISON: CT CT CHEST ABDOMEN PELVIS on DOS: 01/03/24 Technique: Multidetector spiral CT of the abdomen and pelvis was performed from lung bases to pubic symphysis. Intravenous contrast was administered during this examination. Portal venous imaging was obtained. Axial, coronal and sagittal multiplanar reformats were performed by the technologist on a separate workstation. Radiation Dose : 1. Abdomen/Pelvis: CTDIvol 37 mGy, DLP 1980 mGy*cm. Findings: Lower Chest: No acute findings. Scarring/atelectasis and bronchiectasis in the lower lobes redemonstrated. Normal heart size with partially imaged cardiac leads and coronary stent. Liver: Diffuse hypoenhancement relative to the spleen. Gallbladder and Biliary Tree: Unremarkable Pancreas: Moderate atrophy. Spleen: Upper normal size. Adrenal Glands: Unchanged nodular thickening of the left adrenal. Kidneys: No acute findings. Bladder: Unremarkable for degree of distention. Pelvic Organs: Uterus appears absent. Bowel: Mild gastric wall prominence in the setting of underdistention without significant inflammation. The small bowel is unremarkable. No evidence of appendicitis. Distal colonic diverticulosis without inflammatory stranding. Vasculature: Moderate atherosclerosis. Lymphadenopathy: No evident adenopathy. Peritoneum: No ascites, free air, or fluid collection. Abdominal Wall: No significant hernia. Musculoskeletal: No acute finding. Moderate degenerative changes. Osteopenia. IMPRESSION: 1. No acute abdominopelvic abnormality. 2. Colonic diverticulosis. Additional chronic and incidental findings above. Radiation optimization: All CT scans at this facility use at least one of these dose optimization techniques: automated exposure control mA and/or kV adjustment per patient size (includes targeted exams where dose is matched to clinical indication) or iterative reconstruction.
[2025-06-30] MEDS ORDERED: AMOX-117 PO (02:34)
[2025-06-30] MEDS ORDERED: METH4TAB81 PO (02:35)
[2025-06-30] MEDS ORDERED: ALBU18HF2 INH (02:35)
[2025-06-30 03:24] VITALS: BP 124/97; PULSE 87; RESP 16; TEMP 98.6; O2SAT 100
== END 2025-06-30 03:24 | disposition home or self-care (01) ==
LOC: ER 20:45
DX: U07.1 COVID-19 (principal); R10.32 Left lower quadrant pain; R79.83 Abnormal findings of blood amino-acid level; J18.9 Pneumonia, unspecified organism; J44.1 Chronic obstructive pulmonary disease with (acute) exacerbation; R06.02 Shortness of breath; E11.9 Type 2 diabetes mellitus without complications; I25.10 Atherosclerotic heart disease of native coronary artery without angina pectoris; I25.2 Old myocardial infarction; I50.9 Heart failure, unspecified; Z88.1 Allergy status to other antibiotic agents; Z88.5 Allergy status to narcotic agent; Z88.8 Allergy status to other drugs, medicaments and biological substances; Z95.0 Presence of cardiac pacemaker
CPT/HCPCS: 36415; 71045; 74177; 80048; 83605; 83880; 84484; 85025; 85651; 86140; 87040; 93005; 94640; 96365; 96375; 99285; J0456; J0696; J2919; J7030; Q9967; 94760